=== PATIENT | female | born 1990 | race Two or more races ===

== ENCOUNTER 2017-08-11 08:47 | Emergency (ER) | payer SELFPAY ==
[~2017-08-11] VITALS: Ht 152.4 cm; Wt 79.4 kg
--- NOTE | 2017-08-11 09:05 | NUR ---
AFTER PLACING F/C, PT ONLY HAS 5 ML OF URINE DRAINING,MD NOTIFIED. PT BLADER IS DISTENDED.
[2017-08-11] MEDS ORDERED: MORPHINE SULFATE 4 MG/1 ML DISP.SYRIN ONE ×2 (09:21→09:54)
[2017-08-11] MEDS ORDERED: ONDANSETRON 4 MG/2 ML VIAL ONE ×2 (09:21→09:54)
[2017-08-11] MEDS ORDERED: ONDANSETRON 4 MG/2 ML VIAL IV ONE (09:30)
[2017-08-11] MEDS ORDERED: MORPHINE SULFATE 2 MG/1 ML DISP.SYRIN IV ONE (09:30)
[2017-08-11] MEDS ORDERED: MORPHINE SULFATE 4 MG/1 ML DISP.SYRIN IM ONE (09:30)
[2017-08-11] MEDS ORDERED: ONDANSETRON 4 MG/2 ML VIAL IM ONE (09:30)
[2017-08-11] MEDS ORDERED: IV NORMAL SALINE 1000 ML BAG IV ONE (09:30)
[2017-08-11 09:42] LABS: BASOPHILS # (AUTO) 0.1 K/uL (0.0-8.0); BASOPHILS % (AUTO) 0.7 % (0.0-2.0); EOSINOPHILS # (AUTO) 0.3 K/uL (0.0-0.7); EOSINOPHILS % (AUTO) 2.4 % (0.0-7.0); HEMATOCRIT 40.1 % (31.2-41.9); HEMOGLOBIN 13.2 g/dL (10.9-14.3); LYMPHOCYTES # (AUTO) 2.4 K/uL (20.0-40.0); LYMPHOCYTES % (AUTO) 16.8 % (20.5-51.5); MEAN CORPUSCULAR HEMOGLOBIN 25.9 uug (24.7-32.8); MEAN CORPUSCULAR HGB CONC 33 g/dL (32.3-35.6); MEAN CORPUSCULAR VOLUME 78.4 fL (75.5-95.3); MONOCYTES % (AUTO) 6.8 % (0.0-11.0); NEUTROPHILS # (AUTO) 10.4 K/uL (1.8-8.9); NEUTROPHILS % (AUTO) 73.3 % (38.5-71.5); PLATELET COUNT (AUTO) 309 K/uL (179-408); RED BLOOD CELL COUNT(AUTO) 5.11 MIL/uL (3.63-4.92); WHITE BLOOD COUNT (AUTO) 14.1 K/uL (3.8-11.8)
[2017-08-11 09:49] LABS: *BLOOD, URINE 3+ (NEGATIVE); *CLARITY,URINE SLIGHTLY CLOUDY (CLEAR); *COLOR,URINE YELLOW (YELLOW); *KETONES,URINE TRACE (NEGATIVE); *PROTEIN,URINE 2+ (NEGATIVE); *UROBILINOGEN,URINE 0.2 E.U./dl (NORMAL); LEUKOCYTE ESTERASE ,URINE NEGATIVE (NEGATIVE); NITRITE, URINE NEGATIVE (NEGATIVE); UGLUCOSE TRACE (NEGATIVE)
[2017-08-11 09:50] LABS: CREATININE 0.9 mg/dL (0.6-1.3); POTASSIUM 4.1 mmol/L (3.5-5.1)
[2017-08-11 09:59] LABS: *BILIRUBIN,URIN 1+ (NEGATIVE)
[2017-08-11 10:02] LABS: BILIRUBIN,DIRECT 0.1 mg/dL (0.0-0.2); BILIRUBIN,TOTAL 0.5 mg/dL (0.2-1.0); TOTAL PROTEIN, SERUM 8.3 g/dL (6.4-8.2)
--- NOTE | 2017-08-11 10:17 | NUR ---
PT OUT OF ER FOR CT.
[2017-08-11 10:25] LABS: *BILIRUBIN,URIN NEGATIVE (NEGATIVE); *BLOOD, URINE 3+ (NEGATIVE); *CLARITY,URINE SLIGHTLY CLOUDY (CLEAR); *KETONES,URINE NEGATIVE (NEGATIVE); *PROTEIN,URINE 1+ (NEGATIVE); *UROBILINOGEN,URINE 0.2 E.U./dl (NORMAL); LEUKOCYTE ESTERASE ,URINE NEGATIVE (NEGATIVE); NITRITE, URINE NEGATIVE (NEGATIVE); PH,URINE 6.5 (5.0-8.0); UGLUCOSE NEGATIVE (NEGATIVE)
[2017-08-11 10:26] LABS: *COLOR,URINE DARK YELLOW (YELLOW)
[2017-08-11 10:30] LABS: BACTERIA,URINE NONE SEEN /HPF (NONE SEEN); RBC,URINE 80-100 /HPF (0-3); SQUAMOUS EPITHELIAL CELL,UR MANY /HPF (NONE SEEN); WBC,URINE 0-3 /HPF (0-3)
--- NOTE | 2017-08-11 10:38 | NUR ---
PT BACK FROM CT. DENIES PAIN. F/C DRAINAGE IS 400 CC AT THIS TIME.
--- NOTE | 2017-08-11 11:36 | NUR ---
IV removed. Catheter intact and site benign. Pressure and 4x4 gauze applied to site. No bleeding noted.
--- NOTE | 2017-08-11 11:36 | NUR ---
Patient discharged to home in stable conditon. Written and verbal after care instructions given. Patient verbalizes understanding of instructions. PT LEFT ER W/ STEADY GAIT.
[2017-08-11 11:38] VITALS: BP 103/63
== END 2017-08-11 11:41 | disposition home or self-care (01) ==
LOC: ER 08:47
DX: N20.0 Calculus of kidney (principal)
CPT/HCPCS: 36415; 83690; 84703; 85025; 87086; A4663; C1758; J2270; J2405; J7030